=== PATIENT | female | born 1945 | race Caucasian/White ===

== ENCOUNTER 2024-03-17 15:04 | Inpatient (IN) | payer MEDICARE, BC ==
[~2024-03-17] VITALS: Ht 167.6 cm; Wt 57.2 kg
[2024-03-17] MEDS ORDERED: ONDANSETRON HCL/PF 4 MG/2 ML VIAL ONE (15:18)
[2024-03-17] MEDS ORDERED: KETAMINE HCL (500MG/10ML) 50 MG/ML VIAL ONE (15:18)
[2024-03-17] MEDS: KETAMINE HCL (500MG/10ML) 50 MG/ML VIAL IV ONE (15:31)
[2024-03-17] MEDS: IV NS 0.9% 1,000 ML BAG IV ONE (15:31)
[2024-03-17] MEDS: ONDANSETRON HCL/PF - ER 4 MG/2 ML VIAL IV ONE (15:32)
[2024-03-17 16:19] LABS: BASOPHILS % (AUTO) 0.3 % (0.0-2.0); EOSINOPHILS % (AUTO) 0.6 % (0.0-6.0); HEMATOCRIT 37 % (33-45); HEMOGLOBIN 12.7 g/dL (11.5-14.8); LYMPHOCYTES % (AUTO) 26.6 % (20.0-44.0); MEAN CORPUSCULAR HEMOGLOBIN 31 PG (26.0-33.0); MEAN CORPUSCULAR HGB CONC 35 g/dl (31.0-36.0); MEAN CORPUSCULAR VOLUME 90 fL (82-100); MONOCYTES # (AUTO) 0.6 K/uL (0.1-1.30); MONOCYTES % (AUTO) 8.1 % (2.0-12.0); NEUTROPHILS # (AUTO) 4.8 K/uL (1.8-8.9); NEUTROPHILS % (AUTO) 64.4 % (43.0-81.0); PLATELET COUNT (AUTO) 274 K/uL (150-450); RED BLOOD CELL COUNT(AUTO) 4.11 MIL/uL (4.0-5.2); RED CELL DISTRIBUTION WIDTH 13.9 % (11.5-15.0); WHITE BLOOD COUNT (AUTO) 7.4 K/uL (4.3-11.0)
[2024-03-17] MEDS ORDERED: MORPHINE SULFATE INJ 4 MG/ML DISP.SYRIN ONE (16:22)
[2024-03-17] MEDS ORDERED: KETOROLAC TROMETHAMINE 15 MG/ML VIAL ONE (16:22)
[2024-03-17] MEDS: MORPHINE SULFATE INJ 2 MG/ML DISP.SYRIN IV ONE (16:24)
[2024-03-17] MEDS: KETOROLAC TROMETHAMINE 15 MG/ML VIAL IV ONE (16:25)
[2024-03-17 16:26] LABS: CALCIUM, SERUM 9.2 mg/dL (8.5-10.1); CARBON DIOXIDE 31 mmol/L (21-32); CHLORIDE 105 mmol/L (98-107); CREATININE 0.8 mg/dL (0.6-1.3); GLUCOSE 119 mg/dL (74-106); POTASSIUM 3.7 mmol/L (3.5-5.1); SODIUM SERUM 139 mmol/L (136-145); UREA NITROGEN, BLOOD 25 mg/dL (7-18)
[2024-03-17 16:31] LABS: INR 0.98 (0.91-1.10); PARTIAL THROMBOPLASTIN TIME 20.7 SEC (24.3-34.3); PROTHROMBIN TIME 10.1 SECS (9.2-11.1)
[2024-03-17] MEDS ORDERED: FLUT1BLS INH (16:55)
[2024-03-17] MEDS ORDERED: LORA-258 PO (16:55)
[2024-03-17] MEDS ORDERED: CYAN100096 PO (16:55)
[2024-03-17] MEDS ORDERED: FOLI0.4T6 PO (16:55)
[2024-03-17] MEDS ORDERED: IBUP-1957 PO (16:55)
[2024-03-17] MEDS ORDERED: DULO30CA52 PO (16:55)
[2024-03-17] MEDS ORDERED: SIMV-49 PO (16:55)
[2024-03-17] MEDS ORDERED: Z GUARD REMEDY 4 OZ OINT TP PRN (17:30)
[2024-03-17] MEDS ORDERED: LORAZEPAM 0.5 MG TABLET PO PRN (17:30)
[2024-03-17] MEDS ORDERED: MAG HYDROX/AL HYDROX/SIMETH 30 ML UDC PO PRN (17:30)
[2024-03-17] MEDS ORDERED: ACETAMINOPHEN 325 MG TABLET PO PRN (17:30)
[2024-03-17 20:00] VITALS: BP 149/79; TEMP 97.2; O2SAT 98
[2024-03-17] MEDS: MORPHINE SULFATE INJ 2 MG/ML DISP.SYRIN IV PRN (20:25)
[2024-03-18 06:58] LABS: BASOPHILS % (AUTO) 0.4 % (0.0-2.0); EOSINOPHILS % (AUTO) 0.5 % (0.0-6.0); HEMATOCRIT 34 % (33-45); HEMOGLOBIN 11.5 g/dL (11.5-14.8); LYMPHOCYTES # (AUTO) 1.2 K/uL (0.8-4.8); MEAN CORPUSCULAR HEMOGLOBIN 31 PG (26.0-33.0); MEAN CORPUSCULAR HGB CONC 34 g/dl (31.0-36.0); MEAN CORPUSCULAR VOLUME 94 fL (82-100); MONOCYTES # (AUTO) 0.6 K/uL (0.1-1.30); MONOCYTES % (AUTO) 8.7 % (2.0-12.0); NEUTROPHILS # (AUTO) 4.7 K/uL (1.8-8.9); NEUTROPHILS % (AUTO) 71.4 % (43.0-81.0); PLATELET COUNT (AUTO) 239 K/uL (150-450); RED BLOOD CELL COUNT(AUTO) 3.66 MIL/uL (4.0-5.2); RED CELL DISTRIBUTION WIDTH 13.9 % (11.5-15.0); WHITE BLOOD COUNT (AUTO) 6.5 K/uL (4.3-11.0)
[2024-03-18 07:30] VITALS: BP 138/71; TEMP 98.4; O2SAT 97
[2024-03-18 07:42] LABS: CALCIUM, SERUM 8.9 mg/dL (8.5-10.1); CARBON DIOXIDE 25 mmol/L (21-32); CHLORIDE 107 mmol/L (98-107); CREATININE 0.6 mg/dL (0.6-1.3); GLUCOSE 110 mg/dL (74-106); MAGNESIUM 2.5 mg/dL (1.8-2.4); POTASSIUM 3.9 mmol/L (3.5-5.1); SODIUM SERUM 141 mmol/L (136-145); UREA NITROGEN, BLOOD 22 mg/dL (7-18)
[2024-03-18] MEDS: DULOXETINE HCL 30 MG CAPSULE.DR PO SCH (08:11)
[2024-03-18 09:19] LABS: IRON, SERUM 35 ug/dl (50-175); TOTAL IRON BINDING CAPACITY 295 ug/dl (250-450)
[2024-03-18] MEDS: FLUTICASONE/VILANTEROL 1 EACH BLST.W.DEV IH SCH (09:28)
[2024-03-18] MEDS ORDERED: BUPIVACAINE 0.5 % PF 150 MG/30 ML VIAL ONE (10:06)
[2024-03-18] MEDS ORDERED: VANCOMYCIN 1 GM VIAL ONE (10:06)
[2024-03-18] MEDS ORDERED: POLYMYXIN B SULFATE 0 UNITS ONE (10:06)
[2024-03-18 10:13] LABS: CHOLESTEROL 208 mg/dL (<200); FERRITIN 162 ng/mL (8-388); HDL CHOLESTEROL 101 mg/dL (40-60); LDL 77 mg/dL (0-99); TRIGLYCERIDES 78 mg/dL (30-150)
[2024-03-18] MEDS: IV NS 0.9% 1,000 ML IV ONE (11:59)
[2024-03-18] MEDS ORDERED: LABETALOL HCL IV 100MG VIAL ONE (14:55)
[2024-03-18] MEDS ORDERED: hydrALAZINE HCL IV 20 MG VIAL ONE (14:56)
[2024-03-18 20:00] VITALS: BP 134/79; TEMP 97.9; O2SAT 98
[2024-03-19 07:00] VITALS: BP 152/65; TEMP 97.5; O2SAT 100
[2024-03-19] MEDS: ENSURE ENLIVE 237 ML LIQUID (VANILLA) PO SCH (12:04)
[2024-03-19 16:00] VITALS: BP 139/68; TEMP 98.1; O2SAT 96
[2024-03-19] MEDS: FERROUS SULFATE (325 MG) 325 MG/TAB TABLET PO SCH (17:06)
[2024-03-19 20:00] VITALS: BP 126/73; TEMP 98.4; O2SAT 96
[2024-03-19 20:04] VITALS: BP 126/73; TEMP 98.4; O2SAT 96
[2024-03-19 22:41] VITALS: BP 126/73; TEMP 98.4; O2SAT 96
[2024-03-20 08:00] VITALS: BP 127/64; TEMP 97.9; O2SAT 98
[2024-03-20 08:07] LABS: CALCIUM, SERUM 9.4 mg/dL (8.5-10.1); CARBON DIOXIDE 23 mmol/L (21-32); CHLORIDE 103 mmol/L (98-107); CREATININE 0.5 mg/dL (0.6-1.3); GLUCOSE 116 mg/dL (74-106); POTASSIUM 3.5 mmol/L (3.5-5.1); SODIUM SERUM 139 mmol/L (136-145); UREA NITROGEN, BLOOD 19 mg/dL (7-18)
[2024-03-20 08:13] LABS: BASOPHILS % (AUTO) 0.2 % (0.0-2.0); EOSINOPHILS # (AUTO) 0.1 K/uL (0.0-0.7); EOSINOPHILS % (AUTO) 0.6 % (0.0-6.0); HEMATOCRIT 27 % (33-45); HEMOGLOBIN 9.1 g/dL (11.5-14.8); MEAN CORPUSCULAR HEMOGLOBIN 31 PG (26.0-33.0); MEAN CORPUSCULAR HGB CONC 34 g/dl (31.0-36.0); MEAN CORPUSCULAR VOLUME 91 fL (82-100); MONOCYTES # (AUTO) 0.8 K/uL (0.1-1.30); NEUTROPHILS # (AUTO) 6.8 K/uL (1.8-8.9); NEUTROPHILS % (AUTO) 78.2 % (43.0-81.0); PLATELET COUNT (AUTO) 222 K/uL (150-450); RED BLOOD CELL COUNT(AUTO) 2.92 MIL/uL (4.0-5.2); WHITE BLOOD COUNT (AUTO) 8.7 K/uL (4.3-11.0)
[2024-03-20 16:00] VITALS: BP 132/68; TEMP 98.6; O2SAT 98
[2024-03-20 20:00] VITALS: BP 126/76; TEMP 98.6; O2SAT 95
[2024-03-21 07:00] VITALS: BP 142/59; TEMP 97.4; O2SAT 100
[2024-03-21] MEDS: MAGNESIUM HYDROXIDE 30 ML UDC PO PRN (08:39)
[2024-03-21 16:00] VITALS: BP 127/75; TEMP 98.1; O2SAT 98
[2024-03-21 20:00] VITALS: BP 121/80; TEMP 97.9; O2SAT 96
[2024-03-22 08:00] VITALS: BP 147/76; TEMP 99; O2SAT 99
[2024-03-22] MEDS ORDERED: ASPI-992 PO (10:09)
[2024-03-22] MEDS: ONDANSETRON HCL/PF 4 MG/2 ML VIAL IVP PRN (11:50)
[2024-03-22 16:00] VITALS: BP 127/87; TEMP 98.6; O2SAT 94
== END 2024-03-22 19:04 | DRG 481 ==
LOC: ER 15:14 → MED 17:43
PROVIDERS: ADMIT Internal Medicine; ATTEND Internal Medicine
PROC: 0QS706Z Reposition Left Upper Femur with Intramedullary Internal Fixation Device, Open Approach (ICD-10-PCS; principal; 2024-03-18)
DX: S72.142A Displaced intertrochanteric fracture of left femur, initial encounter for closed fracture (principal); N17.9 Acute kidney failure, unspecified; W01.0XXA Fall on same level from slipping, tripping and stumbling without subsequent striking against object, initial encounter; Y92.89 Other specified places as the place of occurrence of the external cause; F32.9 Major depressive disorder, single episode, unspecified; I10 Essential (primary) hypertension; E78.5 Hyperlipidemia, unspecified; F41.9 Anxiety disorder, unspecified; M47.816 Spondylosis without myelopathy or radiculopathy, lumbar region; Z98.1 Arthrodesis status; Z79.51 Long term (current) use of inhaled steroids; Z79.899 Other long term (current) drug therapy
CPT/HCPCS: 36415; 71045-TC; 73502; 73552; 80048-TC; 80061-TC; 82728-TC; 83540-TC; 83735-TC; 84100-TC; 84439-TC; 84443-TC; 84484-TC; 85025-TC; 85730-TC; 86850-TC; 87081-TC; 93307-TC; 94760-TC; 94799-TC; 97110-TC; 97112-TC; 97116-TC; 97530-TC; A4223; A6209; A6253; C1713; G0378; J0360; J0690; J1885; J2270; J2405; J2704; J3370; J3490; J7030